=== PATIENT | male | born 1965 | race Caucasian/White ===

== ENCOUNTER 2022-12-15 13:33 | Emergency (ER) | payer OTHER ==
[~2022-12-15] VITALS: Ht 165.1 cm; Wt 65.9 kg
[2022-12-15] MEDS ORDERED: ACET-2247 PO (13:35)
[2022-12-15 15:28] VITALS: BP 143/71
== END 2022-12-15 15:38 | disposition home or self-care (01) ==
LOC: EMS 13:38
DX: S06.0X0A Concussion without loss of consciousness, initial encounter (principal); F17.210 Nicotine dependence, cigarettes, uncomplicated; Y04.8XXA Assault by other bodily force, initial encounter; Y93.89 Activity, other specified; Y92.89 Other specified places as the place of occurrence of the external cause; Y99.8 Other external cause status
CPT/HCPCS: 70450; 99284